=== PATIENT | female | born 2000 | race Caucasian/White ===

== ENCOUNTER 2021-06-20 21:32 | Emergency (ER) | payer BC, MEDICAID ==
[~2021-06-20] VITALS: Ht 160 cm; Wt 100.0 kg
[2021-06-20 21:55] VITALS: BP 145/91
[2021-06-20 22:18] LABS: BILIRUBIN,URINE NEGATIVE (NEGATIVE); CLARITY,URINE CLEAR; COLOR,URINE YELLOW; GLUCOSE, URINE (UA) NEGATIVE (NEGATIVE); KETONES,URINE NEGATIVE (NEGATIVE); LEUKOCYTE ESTERASE ,URINE NEGATIVE (NEGATIVE); NITRITE,URINE NEGATIVE (NEGATIVE); PROTEIN,URINE NEGATIVE (NEGATIVE)
[2021-06-20 22:24] LABS: BACTERIA,URINE TRACE /HPF
[2021-06-20 22:29] LABS: AMPHETAMINE SCREEN, URINE NEGATIVE (NEGATIVE); BARBITURATE SCREEN URINE NEGATIVE (NEGATIVE); BENZODIAZEPINES SCREEN URINE NEGATIVE (NEGATIVE); CANNABINOID SCREEN, URINE NEGATIVE (NEGATIVE); COCAINE SCREEN URINE NEGATIVE (NEGATIVE); METHADONE STAT NEGATIVE (NEGATIVE); METHAMPHETAMINE SCREEN URINE S NEGATIVE (NEGATIVE); OPIATE SCREEN URINE NEGATIVE (NEGATIVE); OXYCODONE STAT NEGATIVE (NEGATIVE); PROPOXYPHENE STAT NEGATIVE (NEGATIVE); TRICYCLIC ANTIDEPRESSANTS SCRE NEGATIVE (NEGATIVE)
--- NOTE | 2021-06-20 22:43 | ED Psychosocial ---
General Chief Complaint: Suicidal Ideation Risk Stated Complaint: SUICIDAL IDEATIONS Nursing Triage Note: PT AMB TO RM 8. PT REPORTS SHE WAS ON THE PHONE W THE NATIONAL SUICIDE HOTLINE WHEN THE WOMAN SHE WAS SPEAKING TO SENT [place] [employer] TO HER HOME. PPD THEN BROUGHT HER TO ED FOR FURTHER EVALUATION. PT REPORTS SHE HAS SUICIDAL THOUGHTS W PLAN TO CONSUME PILLS. PT HAS BEEN TO [facility] [place] AND IS SEEKING INPATIENT TX AGAIN. PT DENIES ANY TRIGGERS/REASONS FOR THESE THOUGHTS TONIGHT AND REPORTS SHE HAS SUICIDAL THOUGHTS FREQUENTLY, DENIES PAIN. PT A&OX4. Source: patient, family (mom) Exam Limitations: no limitations (KILO MCCARTHY) History of Present Illness Date Seen by Provider: Jun 20, 2021 Time Seen by Provider: 22:14 Initial Comments Patient to the ER by private conveyance from home with her mother and chief complaint for the her whole life he has had depression and has been diagnosed with bipolar disorder. She states that during the last several days she has had feelings of labile mood where she becomes fine and 10 days later she will be tearful and wanting to kill herself. Her plan will be to take all of her medication starting with her hydroxyzine. She has not done anything to harm herself tonight. She does not participate in self-mutilation. She says she has not had suicide attempt but she has had suicidal ideation and ended up in [facility] a year or 2 ago. She follows with a psychiatrist and primary care provider in [place]. She had a counselor moved away. Her next appointment with a counselor is the beginning of August, over a month from now. She does not feel safe at home alone. Her mother adds that she would like her to come home with her. The patient states she would like to go inpatient for psychiatry and counseling. Patient denies anything happened tonight made her symptoms worse. She denies any significant medical issues, cough, fever, shortness of air, nausea, vomiting, rash or sick contacts. She has not had vaccination for Covid or influenza this year. (KILO MCCARTHY) Allergies and Home Medications Allergies Coded Allergies: No Known Drug Allergies (Unverified , 06/20/21) Patient Home Medication List Home Medication List Reviewed: Yes (KILO MCCARTHY) Review of Systems Constitutional: No chills, No fever, No malaise EENTM: No ear discharge, No hearing loss, No ear pain Respiratory: No cough, No short of breath Cardiovascular: No chest pain, No edema Gastrointestinal: No abdominal pain, No nausea, No vomiting Genitourinary: No discharge, No dysuria : No Control/STD Prophylaxis: BC Pills Musculoskeletal: No back pain, No joint pain (KILO MCCARTHY) All Other Systems Reviewed Negative Unless Noted: Yes (KILO MCCARTHY) Past Trzmrgy-Lpndxp-Ekvnpa Hx Patient Social History Tobacco Use?: No Use of E-Cig and/or Vaping dev: No Substance use?: Yes Substance type: Marijuana Alcohol Use?: Yes Alcohol Frequency: Once in a while (KILO MCCARTHY) Immunizations Up To Date Influenza Vaccine Up-to-Date: No; Not Current (KILO MCCARTHY) Past Medical History Surgery/Hospitalization HX: SX: RIGHT SHOULDER, T&A, WISDOM TEETH, NOSE RECONSTRUCTION PMH: SUICIDAL IDEATION, BIPOLAR T1, BIPOLAR DEPRESSION, ANXIETY, DEPRESSION (KILO MCCARTHY) Physical Exam Vital Signs - First Documented 06/20/21 21:55 Temp 36.8 Pulse 84 Resp 20 B/P (MAP) 145/91 (109) Pulse Ox 99 O2 Delivery Room Air (JONATAN HAYWOOD MD) Capillary Refill : Less Than 3 Seconds (KILO MCCARTHY) Height, Weight, BMI Height: '" Weight: lbs. oz. kg; 39.00 BMI Method: General Appearance: WD/WN, mild distress HEENT: PERRL/EOMI, pharynx normal Neck: full range of motion Respiratory: no respiratory distress, no accessory muscle use Cardiovascular: normal peripheral pulses, regular rate, rhythm, no edema Peripheral Pulses: 2+ Radial Pulses (R), 2+ Radial Pulses (L) Neurologic/Psychiatric: alert, other (Tearful affect, depressed affect) Appearance/Memory: appropriate appearance, appropriate insight, neat, no memory impairment Behavior/Eye Contact: cooperative, good eye contact, normal speech, other (No homicidal ideation. Suicidal ideation with plan) Thoughts/Hallucinations: normal thought pattern, no apparent hallucination Skin: normal color, warm/dry (KILO MCCARTHY) Progress/Results/Core Measures Results/Orders Lab Results Laboratory Tests Test 06/20/21 22:09 06/20/21 22:10 06/20/21 22:40 Range/Units SARS-CoV-2 RNA (RT-PCR) Not Detected Not Detecte Urine Color YELLOW Urine Clarity CLEAR Urine pH 6.0 5-9 Urine Specific [place] >=1.030 1.016-1.022 Urine Protein NEGATIVE NEGATIVE Urine Glucose (UA) NEGATIVE NEGATIVE Urine Ketones NEGATIVE NEGATIVE Urine Nitrite NEGATIVE NEGATIVE Urine Bilirubin NEGATIVE NEGATIVE Urine Urobilinogen 0.2 < = 1.0 MG/DL Urine Leukocyte Esterase NEGATIVE NEGATIVE Urine RBC (Auto) NEGATIVE NEGATIVE Urine RBC NONE /HPF Urine WBC NONE /HPF Urine Squamous Epithelial Cells 2-5 /HPF Urine Crystals NONE /LPF Urine Bacteria TRACE /HPF Urine Casts NONE /LPF Urine Mucus SMALL H /LPF Urine Culture Indicated NO Urine Opiates Screen NEGATIVE NEGATIVE Urine Oxycodone Screen NEGATIVE NEGATIVE Urine Methadone Screen NEGATIVE NEGATIVE Urine Propoxyphene Screen NEGATIVE NEGATIVE Urine Barbiturates Screen NEGATIVE NEGATIVE Ur Tricyclic Antidepressants Screen NEGATIVE NEGATIVE Urine Phencyclidine Screen NEGATIVE NEGATIVE Urine Amphetamines Screen NEGATIVE NEGATIVE Urine Methamphetamines Screen NEGATIVE NEGATIVE Urine Benzodiazepines Screen NEGATIVE NEGATIVE Urine Cocaine Screen NEGATIVE NEGATIVE Urine Cannabinoids Screen NEGATIVE NEGATIVE White Blood Count 9.7 4.3-11.0 10^3/uL Red Blood Count 5.24 H 3.80-5.11 10^6/uL Hemoglobin 15.5 11.5-16.0 g/dL Hematocrit 46 35-52 % Mean Corpuscular Volume 87 80-99 fL Mean Corpuscular Hemoglobin 30 25-34 pg Mean Corpuscular Hemoglobin Concent 34 32-36 g/dL Red Cell Distribution Width 12.3 10.0-14.5 % Platelet Count 280 130-400 10^3/uL Mean Platelet Volume 9.9 9.0-12.2 fL Immature Granulocyte % (Auto) 0 % Neutrophils (%) (Auto) 52 42-75 % Lymphocytes (%) (Auto) 38 12-44 % Monocytes (%) (Auto) 9 0-12 % Eosinophils (%) (Auto) 1 0-10 % Basophils (%) (Auto) 0 0-10 % Neutrophils # (Auto) 5.0 1.8-7.8 10^3/uL Lymphocytes # (Auto) 3.7 1.0-4.0 10^3/uL Monocytes # (Auto) 0.8 0.0-1.0 10^3/uL Eosinophils # (Auto) 0.1 0.0-0.3 10^3/uL Basophils # (Auto) 0.0 0.0-0.1 10^3/uL Immature Granulocyte # (Auto) 0.0 0.0-0.1 10^3/uL Sodium Level 141 135-145 MMOL/L Potassium Level 3.7 3.6-5.0 MMOL/L Chloride Level 107 98-107 MMOL/L Carbon Dioxide Level 19 L 21-32 MMOL/L Anion Gap 15 H 5-14 MMOL/L Blood Urea Nitrogen 15 7-18 MG/DL Creatinine 0.89 0.60-1.30 MG/DL Estimat Glomerular Filtration Rate 82 BUN/Creatinine Ratio 17 Glucose Level 83 70-105 MG/DL Calcium Level 9.6 8.5-10.1 MG/DL Corrected Calcium 9.5 8.5-10.1 MG/DL Total Bilirubin 0.2 0.1-1.0 MG/DL Aspartate Amino Transf (AST/SGOT) 19 5-34 U/L Alanine Aminotransferase (ALT/SGPT) 16 0-55 U/L Alkaline Phosphatase 73 40-136 U/L Total Protein 7.5 6.4-8.2 GM/DL Albumin 4.1 3.2-4.5 GM/DL Serum Test, Qualitative NEGATIVE NEGATIVE Salicylates Level < 5.0 L 5.0-20.0 MG/DL Acetaminophen Level < 10 L 10-30 UG/ML Serum Alcohol < 10 <10 MG/DL (JONATAN HAYWOOD MD) My Orders Orders - JONATAN HAYWOOD MD General/Regular (06/21/21 Breakfast) (JONATAN HAYWOOD MD) Vital Signs/I&O 06/20/21 06/21/21 21:55 06:19 Temp 36.8 36.5 Pulse 84 67 Resp 20 16 B/P (MAP) 145/91 (109) 134/70 Pulse Ox 99 97 O2 Delivery Room Air Room Air (JONATAN HAYWOOD MD) Blood Pressure Mean: 109 Progress Progress Note #1: Time: 22:42 Progress Note Medical screening exam obtained. Will have her screening by [facility]. She sounds like she would be appropriate for intensive therapy for inpatient placement. We did discuss if we could give her a counselor within the next week on an outpatient basis with that suffice and she feels that she is not safe at home alone. We did encourage her to follow-up with [facility] as they have counselors that she could get into as well. We will let her speak to the screener but. Does not seem that outpatient therapy will be sufficient tonight. Progress Note #2: Time: 23:52 Progress Note Reviewed test results with the patient. She is medically cleared at this time. Her nurse is in contact with the behavioral screening team. Patient's plan remains the same. Progress Note #3: Time: 01:59 Progress Note [facility] has completed their screening process and agrees with the patient to be placed inpatient. They are going to call around and will let us know when they find appropriate placement. Progress Note #4: Time: 05:38 Progress Note The patient has slept peacefully all night. No further complaints. She is still pending hospital acceptance that the screeners from [facility] are helping us look for. (KILO MCCARTHY) Progress Note : Time: :52 Progress Note Notified that [facility] had accepted the patient. No doc to doc required; RN from this ED will call nurse to nurse report. WE are currently looking for transport. Patient VSS. She is made aware of the plan. (JONATAN HAYWOOD MD) Initial ECG Impression Date: Jun 20, 2021 Initial ECG Impression Time: 22:11 Initial ECG Rate: 84 Initial ECG Rhythm: Normal Sinus Initial ECG Intervals: Normal Initial ECG Impression: Normal Comment Normal sinus rhythm without clinically relevant ST elevation or depression (KILO MCCARTHY) Departure Impression Primary Impression: Depression with suicidal ideation Disposition: 65 XFER TO PSYCH HOSP/UNIT Condition: Stable Transfer Transfer Reason: Exceeds level of care (No inpatient psychiatric hospital) Transfer Progress Notes 0200: [facility] is calling around to several locations. Method of Transfer: Private Vehicle (KILO MCCARTHY) Transfer Reason: Exceeds level of care (No inpatient psychiatric hospital) Time Spoke to Accepting Phy: 07:52 Transfer Progress Notes Doc to doc not required by [facility]. Nursing report to be given by ED Nurse, Lori. Transport will not be able to happen until about 3:30pm Transfer Facility: [facility] @ [place], [place] Method of Transfer: Private Vehicle (JONATAN HAYWOOD MD) Departure-Patient Inst. Referrals: NO,LOCAL PHYSICIAN (PCP/Family) Primary Care Physician Patient Instructions: OUTPT MENTAL HEALTH SERVICES KILO MCCARTHY Jun 20, 2021 22:43 JONATAN HAYWOOD MD Jun 21, 2021 07:57
[2021-06-20 22:46] LABS: BASOPHILS % (AUTO) 0 % (0-10); EOSINOPHILS # (AUTO) 0.1 10^3/uL (0.0-0.3); EOSINOPHILS % (AUTO) 1 % (0-10); HEMATOCRIT 46 % (35-52); HEMOGLOBIN 15.5 g/dL (11.5-16.0); LYMPHOCYTES # (AUTO) 3.7 10^3/uL (1.0-4.0); LYMPHOCYTES % (AUTO) 38 % (12-44); MEAN CORPUSCULAR HEMOGLOBIN 30 pg (25-34); MEAN CORPUSCULAR HGB CONC 34 g/dL (32-36); MEAN CORPUSCULAR VOLUME 87 fL (80-99); MEAN PLATELET VOLUME 9.9 fL (9.0-12.2); MONOCYTES # (AUTO) 0.8 10^3/uL (0.0-1.0); MONOCYTES % (AUTO) 9 % (0-12); NEUTROPHILS % (AUTO) 52 % (42-75); PLATELET COUNT 280 10^3/uL (130-400); WHITE BLOOD COUNT 9.7 10^3/uL (4.3-11.0)
[2021-06-20 22:53] LABS: ALBUMIN 4.1 GM/DL (3.2-4.5); CHLORIDE 107 MMOL/L (98-107); POTASSIUM 3.7 MMOL/L (3.6-5.0); SODIUM 141 MMOL/L (135-145)
[2021-06-20 22:55] LABS: CALCIUM 9.6 MG/DL (8.5-10.1)
[2021-06-20 22:56] LABS: GLUCOSE 83 MG/DL (70-105); TOTAL PROTEIN 7.5 GM/DL (6.4-8.2)
[2021-06-20 22:57] LABS: CARBON DIOXIDE 19 MMOL/L (21-32)
[2021-06-20 22:58] LABS: BILIRUBIN,TOTAL 0.2 MG/DL (0.1-1.0)
[2021-06-20 23:00] LABS: ALKALINE PHOSPHATASE 73 U/L (40-136); CREATININE SERUM 0.89 MG/DL (0.60-1.30); GFR ESTIMATED 82
[2021-06-20 23:01] LABS: ACETAMINOPHEN < 10 UG/ML (10-30); BUN/CREATININE RATIO 17
[2021-06-20 23:02] LABS: SALICYLATE < 5.0 MG/DL (5.0-20.0)
[2021-06-20 23:03] LABS: ALANINE AMINOTRANSFERASE 16 U/L (0-55)
[2021-06-21] MEDS ORDERED: NALTREXONE 50 MG TABLET PO STA (09:53)
[2021-06-21] MEDS ORDERED: buPROPion 100 MG (WELLBUTRIN) TAB PO STA (09:53)
[2021-06-21] MEDS ORDERED: toPIRamate 25 MG (TOPAMAX) TAB PO ONE (10:00)
[2021-06-21] MEDS ORDERED: SCOPOLAMINE 1.5 MG (TRANSDERM-SCOP) PATCH TD ONE (13:30)
== END 2021-06-21 14:11 ==
LOC: EDUNIT# 21:32 → ER 21:35
DX: F32.9 Major depressive disorder, single episode, unspecified (principal); R45.851 Suicidal ideations; Z20.822 Contact with and (suspected) exposure to COVID-19
CPT/HCPCS: 80053; 80306; 81000; 84703; 85025; 87636; 93005; 99283; G0480 ×3; 36415; 80320; 80329